=== PATIENT | male | born 1950 | race Caucasian/White ===

== ENCOUNTER 2023-06-17 09:36 | Emergency (ER) | payer MEDICARE, OTHER, SELFPAY ==
[2023-06-17 09:40] VITALS: BP 111/82
[2023-06-17 09:41] VITALS: BP 111/82
[2023-06-17 09:50] VITALS: BMI 41.5
[2023-06-17 10:00] VITALS: BP 110/70
[2023-06-17 10:04] LABS: % Basophils 0.9 % (0-2); % Eosinophils 2.4 % (0-6); % Immature Granulocytes 0.3 % (0-0.5); % Lymphocytes 31.5 % (20.5-51.1); % Monocytes 7.7 % (1.7-9.3); % Neutrophils 57.2 % (42.2-75.2); Absolute Basophils 0.1 10^3/uL (0-0.2); Absolute Eosinophils 0.2 10^3/uL (0-0.7); Absolute Lymphocytes 2.8 10^3/uL (1.2-3.4); Absolute Monocytes 0.7 10^3/uL (0.1-0.6); Absolute Neutrophils 5.1 10^3/uL (1.4-6.5); Hematocrit 37.8 % (39.0-52.0); Hemoglobin 13.2 g/dL (13.0-18.0); Mean Corp Hgb Conc. 34.9 g/dL (33.0-37.0); Mean Corpuscular Hgb 29.8 pg (27.0-31.0); Mean Corpuscular Volume 85.3 fL (80.0-94.0); Mean Platelet Volume 10.8 fL (7.4-10.4); Nucleated Red Blood Cells % 0 % (-); Platelet Count 310 10^3/uL (130-400); Red Blood Cell Count 4.43 10^6/uL (4.70-6.10); Red Cell Dist. Width 13.2 % (11.5-14.5); White Blood Cell Count 8.9 10^3/uL (4.8-10.8)
--- NOTE | 2023-06-17 10:08 | ED.GENMED ---
History of Present Illness
General
Chief Complaint: Seizure
Source: patient
Exam Limitations: none
Time Seen by Provider: 06/17/23 09:51
Travel History
Have you had any contact with someone who has COVID-19?: No
Do you have any symptoms of coronavirus? Fever > 100 degrees, chills, cough, shortness of breath, sore throat, loss of taste or smell, muscle aches, or headache?: No
History of Present Illness
History of Present Illness:
72-year-old male presents today via EMS from the radiation oncology department for potential seizure. He was prepping to have a study performed and he got very anxious laying down on the CT scan. He asked to stand up and he was sat down in a
chair. We received report from the department that he had full body convulsions for about 1 minute. He bit his tongue. Patient recalls waking up then and talking to the staff in the room. At the current time he notes only fatigue. Denies
headache chest pain or shortness of breath. No prior history of seizures. He has had episodes like this in the past related to healthcare procedures. There is no urinary incontinence. He is treated for hypertension. He has prostate cancer.
Past History
Past History
ED Past Medical History: HTN and Hypercholesterolemia
ED Past Surgical History: None
Social History
Tobacco: Non-smoker
Personal:
Living: with family
Employment: Employed
Phy Exam
Physical Exam
Physical Exam:
General: Well-appearing male no acute respiratory distress
HEENT: Normocephalic bite estefania to the right side of the tongue pupils equal round reactive to light
Heart: Regular rate and rhythm no murmurs
Lungs: Clear to auscultation bilaterally no wheezing
Abdomen is soft nontender nondistended no guarding rebound normal bowel sounds
Extremities: No cyanosis or edema
Neurologic exam: Alert and oriented x 3 no facial asymmetry or slurred speech no focal deficit noted
Course
Orders/Labs/Results
Orders:
Orders
06/17/23 09:39
Electrocardiogram (*1) Urgent
Reason for Study: Syncope
06/17/23 09:40
EKG- Treatment ONCE
06/17/23 09:46
Complete Blood Count/With Diff Urgent
Comprehensive Metabolic Panel Urgent
06/17/23 10:07
0.9% Sodium Chloride 1000 ml [Nss] 1,000 ml IV BOLUS
06/17/23 10:16
CT Head W/o Iv Contrast Urgent
Comment:
Reason For Exam: possible seizure
Abnormal Lab Results
06/17/23
09:46
RBC 4.43 L 10^6/uL
(4.70-6.10)
Hct 37.8 L %
(39.0-52.0)
MPV 10.8 H fL
(7.4-10.4)
Absolute Monos (auto) 0.7 H 10^3/uL
(0.1-0.6)
Sodium 134 L mmol/L
(135-145)
Glucose 151 H mg/dl
(70-99)
06/17/23 09:46
06/17/23 09:46
Vital Signs
Initial and Last Documented VS:
Initial Vital Signs
BP
111/82
06/17/23 09:40
Last Documented Vital Signs
Temp Pulse Resp BP Pulse Ox
97.6 F 86 22 118/72 96
06/17/23 09:41 06/17/23 11:30 06/17/23 11:30 06/17/23 11:00 06/17/23 11:30
MDM/Problems Addressed
Differential Diagnosis Includes:
Unresponsive episode. Question convulsive syncope versus seizure versus vasovagal event
Will check labs and EKG currently on the monitor. Patient is alert currently he was alert after the episode. There is no postictal phase to suggest seizure.
Regarding the bite estefania on the tongue. Currently the tongue is not bleeding. Will continue to observe but will unlikely need sutures
*Critical Care Note
Total Time (30-74mins, 75-104mins- exclusive of procedures): Not Applicable
Update Note
Update Note:
CT of the head was ordered secondary history of cancer and potential seizure-like activity. This was negative for acute finding. Patient describes these episodes occurring around medically based procedures. He recalls waking up in the room. He
did bite his tongue however we do not think this was a seizure presentation. This is more convulsive syncope. Discussed these findings with neurology as well. No indication for any medication initiation. The tongue flap continue to flap and get
in the way. Because of this reason, this was closed with 5-0 chromic sutures to tack the flap down. This was done after was anesthetized and local fashion with 1% lidocaine. He tolerated this well. Stable for discharge home. With his .
ED Attending Note
-
Portions of this chart may have been created with voice recognition software.� Occasional wrong word or��sound alike� substitutions may have occurred due to the inherent limitations of voice recognition software.
Discharge Plan
Departure
Patient Disposition: Home (Routine Discharge)
Date of Disposition: 06/17/23
Time of Disposition: 12:03
Patient with high blood pressure during this ER visit?: No
Discharge Problem:
Syncope
Instructions: Seizures, Adult (DC), Syncope (Fainting) (DC)
Referrals:
Jose Rivero MD [Active] -
Ben Helton, [Family Provider] -
Activity Restrictions/Additional Instructions:
3 sutures were placed in your tongue today. They will dissolve on their own. Eat soft bland diet for now. You may use ice chips for pain relief or Tylenol if needed. Please follow-up here for worsening symptoms otherwise continue to follow-up
with family doctor and neurologist for further evaluation
Interventions
Interventions:
*Risk Screen - Suicide Last Done: 06/17/23 09:41
*General Assessment Last Done: 06/17/23 09:41
*Neglect/Abuse Screening Last Done: 06/17/23 09:41
*ED COVID-19 Vaccine History Last Done: 06/17/23 09:50
[2023-06-17 10:17] LABS: ALT (SGPT) 23 U/L (0-50); AST (SGOT) 27 U/L (17-59); Albumin 4.4 g/dl (3.5-5.0); Alkaline Phosphatase 101 U/L (38-126); Blood Urea Nitrogen 19 mg/dl (9-20); Calcium 9.6 mg/dl (8.4-10.2); Carbon Dioxide 27 mmol/L (22-30); Chloride 98 mmol/L (98-107); Estimated Creatinine Clearance 85 ml/min; Glucose 151 mg/dl (70-99); Potassium 3.6 mmol/L (3.5-5.1); Sodium 134 mmol/L (135-145); Total Bilirubin 0.9 mg/dl (0.2-1.3); eGFR > 60.00
[2023-06-17 11:00] VITALS: BP 118/72
[2023-06-17] MEDS: NSS 1000 IV (11:30)
[2023-06-17 12:00] VITALS: BP 142/82
== END 2023-06-17 12:15 | disposition home or self-care (01) ==
LOC: EMR 09:36
PROVIDERS: EMERGENCY PHYSICIAN Emergency Medicine; FAMILY PHYSICIAN Family Medicine
DX: R55 Syncope and collapse (principal); C61 Malignant neoplasm of prostate
CPT/HCPCS: 99285; 96360; 70450; 80053; 85025; 93005